=== PATIENT | male | born 1955 | race Caucasian/White ===

== ENCOUNTER → 2018-02-04 | Outpatient (CLI) | payer BC ==
[~2018-02-04] MED LIST: IBUPROFEN 600600 M1 PO; VALIUM2 MG PO
== END ==
LOC: HYPER 06:52
DX: S91.112D Laceration without foreign body of left great toe without damage to nail, subsequent encounter (principal); L84 Corns and callosities; I73.9 Peripheral vascular disease, unspecified; L21.9 Seborrheic dermatitis, unspecified; I10 Essential (primary) hypertension; L20.84 Intrinsic (allergic) eczema; E78.00 Pure hypercholesterolemia, unspecified; M54.2 Cervicalgia; G47.00 Insomnia, unspecified; F51.04 Psychophysiologic insomnia; F17.200 Nicotine dependence, unspecified, uncomplicated; X58.XXXD Exposure to other specified factors, subsequent encounter

== ENCOUNTER → 2018-03-04 | Outpatient (CLI) | payer BC | LOC: HYPER 06:54 | DX: T81.89XD Other complications of procedures, not elsewhere classified, subsequent encounter (principal); S91.112D Laceration without foreign body of left great toe without damage to nail, subsequent encounter; L84 Corns and callosities; L21.9 Seborrheic dermatitis, unspecified; L20.84 Intrinsic (allergic) eczema; E78.00 Pure hypercholesterolemia, unspecified; G47.00 Insomnia, unspecified; I10 Essential (primary) hypertension; M54.2 Cervicalgia; F17.290 Nicotine dependence, other tobacco product, uncomplicated; X58.XXXD Exposure to other specified factors, subsequent encounter; Y92.89 Other specified places as the place of occurrence of the external cause; Y83.8 Other surgical procedures as the cause of abnormal reaction of the patient, or of later complication, without mention of misadventure at the time of the procedure ==

== ENCOUNTER → 2018-04-01 | Outpatient (CLI) | payer BC | LOC: HYPER 07:02 | DX: S91.111D Laceration without foreign body of right great toe without damage to nail, subsequent encounter (principal); L84 Corns and callosities; L21.9 Seborrheic dermatitis, unspecified; L20.84 Intrinsic (allergic) eczema; E78.00 Pure hypercholesterolemia, unspecified; G47.00 Insomnia, unspecified; I73.9 Peripheral vascular disease, unspecified; I10 Essential (primary) hypertension; F17.200 Nicotine dependence, unspecified, uncomplicated; F17.290 Nicotine dependence, other tobacco product, uncomplicated; X58.XXXD Exposure to other specified factors, subsequent encounter ==